=== PATIENT | male | born 2000 | race Caucasian/White ===

== ENCOUNTER → 2020-01-25 | Outpatient (CLI) | payer OTHER | END | disposition home or self-care (01) | LOC: COVID19 09:41 | PROVIDERS: ATTEND Hospitalist | DX: U07.1 COVID-19 (principal) ==

== ENCOUNTER → 2024-06-25 | Day surgery (SDC) | payer OTHER ==
[~2024-06-25] VITALS: Ht 172.7 cm; Wt 108.9 kg
[~2024-06-25] MED LIST: ACETAMINOPHEN 100 ML IV ONE; COLACE100 MG PO; Dexamethasone Sodium Phospha 4 MG/ML VIAL IV ONE; Ketamine Hydrochloride 50 MG/5 ML SYRINGE IV ONE; Lactated Ringer's Solution 1,000 ML IV ONE; Lidocaine Hydrochloride 2% 5 ML SDV IM ONE; Lidocaine Hydrochloride 30 ML VIAL ONE; MAGNESIUM SULFATE 2 GM/50 ML IVB IV ONE; Ondansetron Hydrochloride 4 MG/2 ML VIAL IV ONE; PERCOCET 5-3251 EACH PO; PROPOFOL 200 MG/20 ML VIAL IV ONE; ROCURONIUM BROMIDE 50 MG/5 ML SYRINGE IV ONE; SEVOFLURANE 250 ML BOT INH ONE; SUGAMMADEX SODIUM 200 MG/2 ML VIAL IV ONE; Succinylcholine Chloride 200 MG/10 ML SYRINGE IV ONE; ceFAZolin sodium 2GM/20ML IV ONE; ceFAZolin sodium/sodium chlor 10 ML IV ONE; fentaNYL CITRATE 100 MCG/2 ML VIAL IV ONE
[2024-06-25 08:00] VITALS: BP 133/62
[2024-06-25 10:00] VITALS: BP 165/80
[2024-06-25 10:15] VITALS: BP 134/63
[2024-06-25 10:30] VITALS: BP 134/87
== END | disposition home or self-care (01) ==
LOC: SDC 06-21 09:30
PROVIDERS: ATTEND Surgery
DX: L05.01 Pilonidal cyst with abscess (principal)

== ENCOUNTER → 2025-01-07 | Day surgery (SDC) | payer OTHER ==
[~2025-01-07] VITALS: Ht 172.7 cm; Wt 106.6 kg
[~2025-01-07] MED LIST changes: -Ketamine Hydrochloride 50 MG/5 ML SYRINGE IV ONE; -Lidocaine Hydrochloride 2% 5 ML SDV IM ONE; +Lidocaine Hydrochloride 2% 5 ML SDV IV ONE; -MAGNESIUM SULFATE 2 GM/50 ML IVB IV ONE; +Midazolam Hydrochloride 2 MG/2 ML VIAL IV ONE; -PROPOFOL 200 MG/20 ML VIAL IV ONE; +SODIUM CHLORIDE 0.9% 100 ML IV ONE; -Succinylcholine Chloride 200 MG/10 ML SYRINGE IV ONE; +Water, Sterile 10 ML VIAL ONE; -ceFAZolin sodium 2GM/20ML IV ONE; -ceFAZolin sodium/sodium chlor 10 ML IV ONE; -fentaNYL CITRATE 100 MCG/2 ML VIAL IV ONE; +fentaNYL CITRATE/PF 50 MCG/ML SYRINGE IV PRN
[2025-01-07 08:54] VITALS: BP 126/57
[2025-01-07 10:56] VITALS: BP 97/43
[2025-01-07 11:11] VITALS: BP 99/43
[2025-01-07 11:26] VITALS: BP 121/57
[2025-01-07 11:40] VITALS: BP 110/60
[2025-01-07 11:56] VITALS: BP 120/70
== END | disposition home or self-care (01) ==
LOC: SDC 12-27 11:00
PROVIDERS: ATTEND Surgery
DX: L05.91 Pilonidal cyst without abscess (principal)